=== PATIENT | female | born 2000 | race Caucasian/White ===

== ENCOUNTER 2022-08-17 06:45 | Emergency (ER) | payer OTHER ==
[~2022-08-17] VITALS: Ht 154.9 cm; Wt 53.1 kg
[2022-08-17 06:54] VITALS: BP 124/85
--- NOTE | 2022-08-17 07:01 | NUR ---
Patient taken to bed 12 with her family.
--- NOTE | 2022-08-17 07:11 | NUR ---
Dr. Avendaño examining patient.
--- NOTE | 2022-08-17 07:17 | NUR ---
Patient resting in bed, A/Ox4, chest rise and fall symmetrical, no c/o pain or s/s of distress, on monitor.
--- NOTE | 2022-08-17 07:24 | NUR ---
Change of shift report given to AM shift Nurse Marichuy RUFFIN. AM shift Nurse Marichuy RN verbalized understanding of report, no further questions.
--- NOTE | 2022-08-17 07:45 | NUR ---
resting in bed, denies s/s of sob or any discomfort.
[2022-08-17 08:03] VITALS: BP 105/62
--- NOTE | 2022-08-17 08:09 | NUR ---
Patient discharged with v/s stable. Written and verbal after care instructions given and explained. Patient verbalized understanding. Ambulatory with steady gait. All questions addressed prior to discharge. Advised to follow up with PMD.
== END 2022-08-17 08:03 | disposition home or self-care (01) ==
LOC: MED 06:45
DX: R06.02 Shortness of breath (principal)
CPT/HCPCS: 93005; 99283